=== PATIENT | male | born 1985 | race Two or more races ===

== ENCOUNTER 2019-02-02 13:17 | Inpatient (IN) | payer SELFPAY ==
[2019-02-02] MEDS ORDERED: NORMAL SALINE 1000 ML 1,000 ML IV ONE ×3 (13:36→16:43)
--- NOTE | 2019-02-02 13:46 | ER Document Report ---
ED Medical Screen (RME) - Related Data Frequency of alcohol use: Heavy Drug Abuse: None <MARY ANN ARMANDO - Last Filed: 02/02/19 13:41> <TOMMIENICOLETTE Paris - Last Filed: 02/02/19 17:10> - General Stated Complaint: ALTERED MENTAL STATUS - HPI Notes: 02/02/19 13:41 Patient is a 38-year-old male brought into the emergency department for evaluation. He was brought in by [place] [employer] and EMS. Evidently he was in town, police were called because he was acting abnormally. Please found him to be confused. They were asking him to identify himself. He was using names that he read off of street signs, advertisements, stating that was his name. The patient states to me that he was out drinking last night. He states he was drinking liquor. He states he drinks "most days." He denies use of any other illicit drugs. He denies any recent trauma. (MARY ANN ARMANDO) Past Medical History - General Information source: Patient, Law Enforcement, Emergency Med Personnel - Social History Frequency of alcohol use: Heavy Drug Abuse: None <MARY ANN ARMANDO - Last Filed: 02/02/19 13:41> Review of Systems - Review of Systems -: Yes ROS unobtainable due to patient's medical condition <MARY ANN ARMANDO - Last Filed: 02/02/19 13:41> Physical Exam <MARY ANN ARMANDO - Last Filed: 02/02/19 13:41> - Vital signs Notes: Afebrile, mildly tachycardic per EMS. (MARY ANN ARMANDO) - Notes Notes: 38-year-old male, mildly diaphoretic, awake and alert, no apparent distress. Head is normal cephalic and atraumatic. Pupils are equal, round, reactive to light. Oral mucosa is moist. Heart is regular rate and rhythm, lungs are clear to oscillation bilaterally. Abdomen is soft, nontender, no active bowel sounds. Skin is warm, diaphoretic. Patient is awake and alert. He is oriented to place and time. He is able to identify the president. He seems to be confabulating, however. He is looking around the room anxiously. He moves all 4 extremities spontaneously. (MARY ANN ARMANDO) Course <MARY ANN ARMANDO - Last Filed: 02/02/19 13:41> - Laboratory Result Diagrams: 02/02/19 15:04 02/02/19 15:04 <NICOLETTE REILLY - Last Filed: 02/02/19 17:10> - Re-evaluation Re-evalutation: 02/02/19 13:45 I have greeted and performed a rapid initial assessment of this patient. A comprehensive ED assessment and evaluation of the patient, analysis of test results and completion of medical decision making process will be conducted by an additional ED providers. (MARY ANN ARMANDO) - Laboratory Laboratory results interpreted by me: 02/02/19 02/02/19 02/02/19 15:04 15:04 15:04 WBC 11.5 H RBC 5.58 H Hgb 17.6 H Hct 53.1 H Seg Neutrophils % 79.6 H Lymphocytes % 12.4 L Absolute Neutrophils 9.1 H Carbon Dioxide 14 L Anion Gap 32 H Glucose 129 H Calcium 11.3 H Total Bilirubin 1.6 H Ammonia 319.5 H Creatine Kinase 375 H Total Protein 9.6 H Albumin 5.9 H Salicylates < 1.0 L Acetaminophen < 10 L Doctor's Discharge <MARY ANN ARMANDO - Last Filed: 02/02/19 13:41> <NICOLETTE REILLY - Last Filed: 02/02/19 17:10> - Discharge Clinical Impression: Hyperammonemia, Encephalopathy, High anion gap metabolic acidosis Altered mental status Qualifiers: Altered mental status type: somnolence Qualified Code(s): R40.0 - Somnolence Condition: Stable Disposition: ADMITTED INPATIENT
--- NOTE | 2019-02-02 14:11 | RADIOLOGY REPORT (SQ) ---
EXAM DESCRIPTION: CT HEAD WITHOUT COMPLETED DATE/TIME: 02/02/2019 1:56 pm REASON FOR STUDY: AMS COMPARISON: None. TECHNIQUE: Axial images acquired through the brain without intravenous contrast. Images reviewed wi th bone, brain and subdural windows. Additional sagittal and coronal reconstructions were generated. Images stored on PACS. All CT scanners at this facility use dose modulation, iterative reconstruction, and/or weight based d osing when appropriate to reduce radiation dose to as low as reasonably achievable (ALARA). [facility]: Dose Right [facility]: CareDose [facility]: Dose Right [facility]: Teradose 4D [facility]: Makstr RADIATION DOSE: CT Rad equipment meets quality standard of care and radiation dose reduction techniq ues were employed. CTDIvol: 53.2 mGy. DLP: 2141 mGy-cm. mGy. LIMITATIONS: Extensive motion artifact throughout. FINDINGS: VENTRICLES: Normal size and contour. CEREBRUM: No masses. No hemorrhage. No midline shift. No evidence for acute infarction. Normal gra y/white matter differentiation. No areas of low density in the white matter. CEREBELLUM: No masses. No hemorrhage. No alteration of density. No evidence for acute infarction. EXTRAAXIAL SPACES: No fluid collections. No masses. ORBITS AND GLOBE: No intra- or extraconal masses. Normal contour of globe without masses. CALVARIUM: No fracture. PARANASAL SINUSES: No fluid or mucosal thickening. SOFT TISSUES: No mass or hematoma. OTHER: No other significant finding. IMPRESSION: Examination is limited by extensive motion artifact. Within this limitation, no acute i ntracranial pathology. EVIDENCE OF ACUTE STROKE: NO. COMMENT: Quality ID # [id number]: Final reports with documentation of one or more dose reduction techniques (e.g., Automated exposure control, adjustment of the mA and/or kV according to patient size, use of iterative reconstruction technique) TECHNICAL DOCUMENTATION: JOB ID: [id number] [employer]- All Rights Reserved Reading location - IP/workstation name: [email or web address]
--- NOTE | 2019-02-02 14:15 | ER Document Report ---
ED General - General Chief Complaint: Altered Mental Status Stated Complaint: ALTERED MENTAL STATUS Time Seen by Provider: 02/02/19 13:54 TRAVEL OUTSIDE OF THE [place] IN LAST 30 DAYS: - Unknown - HPI Notes: Patient is a 38-year-old male that presents to the emergency department for chief complaint of alcohol intoxication. Patient was found wandering around a business in [place] behaving erratically by [facility]. When he would not answer his name he was brought to the emergency room. Patient tells me that he has been drinking "mas cervesas" today. Patient does speak [place] but his primary language is English. He denies any hallucinations suicidal ideations or homicidal ideations. He states he remembers acting erratically and reports it was because he was very drunk. Patient denies any trauma or injury. He is complaining of a pain on the lateral aspect of his right leg that is sharp and just began during our conversation. Patient denies headache, vision changes, numbness and weakness. Past Medical History: Asthma Past Surgical History: Appendectomy Social History: Occasional alcohol, denies tobacco or drug use Family History: Reviewed and noncontributory for presenting illness Allergies: Reviewed, see documented allergy list. REVIEW OF SYSTEMS: CONSTITUTIONAL : No fever No chills No diaphoresis No recent illness EENT: No vision changes No congestion No sore throat CARDIOVASCULAR: No chest pain No palpitations RESPIRATORY: No shortness of breath No cough No difficulty breathing GASTROINTESTINAL: No abdominal pain No nausea No vomiting No diarrhea GENITOURINARY: No dysuria No hematuria No difficulty urinating MUSCULOSKELETAL: No back pain leg pain No arm pain SKIN: No rashes No lesions LYMPHATIC: No swollen, enlarged glands. NEUROLOGICAL: No lightheadedness No headache No weakness No paresthesias PSYCHIATRIC: No anxiety No depression PHYSICAL EXAMINATION: Vital signs reviewed, nursing noted reviewed. GENERAL: Appears intoxicated, well-nourished and in no acute distress. HEAD: Atraumatic, normocephalic. EYES: No nystagmus or ophthalmoplegia eyes appear normal, extraocular movements intact, sclera anicteric, conjunctiva are normal. ENT: nares patent, oropharynx clear without exudates. Moist mucous membranes. NECK: Normal range of motion, supple without lymphadenopathy LUNGS: Breath sounds clear to auscultation bilaterally and equal. No wheezes rales or rhonchi. HEART: Regular rate and rhythm without murmurs ABDOMEN: Soft, nontender, normoactive bowel sounds. No rebound, guarding, or rigidity. No masses appreciated. EXTREMITIES: Tenderness to palpation of lateral right lower extremity with underlying muscle spasm, no bony tenderness, good range of motion, no pitting or edema. NEUROLOGICAL: No focal neurological deficits. Moves all extremities spontaneously Motor and sensory grossly intact on exam. PSYCH: Normal mood, normal affect. SKIN: Warm, Dry, normal turgor, no rashes or lesions noted on exposed skin Past Medical History - General Information source: Patient, Law Enforcement, Emergency Med Personnel - Social History Smoking Status: Current Every Day Smoker Chew tobacco use (# tins/day): No Frequency of alcohol use: Heavy Drug Abuse: None Family History: Reviewed & Not Pertinent Patient has suicidal ideation: No Patient has homicidal ideation: No Renal/ Medical History: Denies: Hx Peritoneal Dialysis Course - Re-evaluation Re-evalutation: 02/02/19 14:18 Vitals reviewed. Nursing notes reviewed. Patient is intoxicated but cooperative. He is in no acute distress. He does have tenderness along the lateral aspect of his right leg which is consistent with acute muscle spasm. After stretching of his right calf the pain was improved. Patient will be given IV hydration. He is currently GCS [address] and time 02/02/19 14:54 Patient has continued to give false identities and multiple names to registration and nursing staff. He is clinically intoxicated and admits to heavy alcohol consumption to day. Patient began to get combative with staff and is currently posing a risk to his own safety as well as staff. Patient placed in restraints in order to establish IV access and for patient safety 02/02/19 16:41 I reevaluated this patient on multiple occasions. He has been intermittently combative. Patient is redirectable but seems to be afraid of the security. He is still requiring two-point restraints to keep him from getting out of the bed. He has not pulled his IV out. Patient is currently mentating better than when he presented. He is now speaking clearly in [place]. He has an ammonia level of 319 and states he believes he has had this issue previously when he was drinking. His alcohol currently is negative. He has a normal aspirin Tylenol level. Patient has a slight elevation of CK with normal renal function and no acute rhabdomyolysis. He has not urinated yet and will be ordered 1/3 L of fluid to be started on maintenance at 200 and hour. Patient was ordered lactulose for his hyperammonemia. He will be admitted to the hospital for his acute encephalopathy and elevated ammonia levels. Case discussed with Dr. Pereyra who accepts admission. Laboratory 02/02/19 02/02/19 02/02/19 15:04 15:04 15:04 WBC 11.5 H RBC 5.58 H Hgb 17.6 H Hct 53.1 H MCV 95 MCH 31.6 MCHC 33.2 RDW 13.8 Plt Count 334 Seg Neutrophils % 79.6 H Lymphocytes % 12.4 L Monocytes % 7.3 Eosinophils % 0.3 Basophils % 0.4 Absolute Neutrophils 9.1 H Absolute Lymphocytes 1.4 Absolute Monocytes 0.8 Absolute Eosinophils 0.0 Absolute Basophils 0.0 Sodium 144.3 Potassium 4.8 Chloride 98 Carbon Dioxide 14 L Anion Gap 32 H BUN 10 Creatinine 1.22 Est GFR ( Amer) > 60 Est GFR (Non-Af Amer) > 60 Glucose 129 H Calcium 11.3 H Magnesium 2.0 Total Bilirubin 1.6 H Direct Bilirubin 0.4 Neonat Total Bilirubin Not Reportable Neonat Direct Bilirubin Not Reportable Neonat Indirect Bili Not Reportable AST 41 ALT 24 Alkaline Phosphatase 101 Ammonia 319.5 H Creatine Kinase 375 H Total Protein 9.6 H Albumin 5.9 H Salicylates < 1.0 L Acetaminophen < 10 L Serum Alcohol < [address] 02/02/19 00:00 IMPRESSION: Examination is limited by extensive motion artifact. Within this limitation, no acute intracranial pathology. EVIDENCE OF ACUTE STROKE: NO. - Laboratory Result Diagrams: 02/02/19 15:04 02/02/19 15:04 Laboratory results interpreted by me: 02/02/19 02/02/19 02/02/19 15:04 15:04 15:04 WBC 11.5 H RBC 5.58 H Hgb 17.6 H Hct 53.1 H Seg Neutrophils % 79.6 H Lymphocytes % 12.4 L Absolute Neutrophils 9.1 H Carbon Dioxide 14 L Anion Gap 32 H Glucose 129 H Calcium 11.3 H Total Bilirubin 1.6 H Ammonia 319.5 H Creatine Kinase 375 H Total Protein 9.6 H Albumin 5.9 H Salicylates < 1.0 L Acetaminophen < 10 L - EKG Interpretation by Me Additional EKG results interpreted by me: 02/02/19 14:20 Interpreted by myself [id number]: Sinus tachycardia, rate 106, normal axis, no STEMI, nonspecific T wave changes Critical Care Note - Critical Care Note Total time excluding time spent on procedures (mins): 40 Comments: Critical care time 40 exclusive from separate billable procedures for a patient requiring complex medical decision making, and high potential for clinical deterioration. Time spent obtaining history from patient or surrogate, discussions with consultants, development of treatment plan with patient or surrogate, evaluation of patient's response to treatment, examination of patient, ordering and performing treatments and interventions, ordering and review of laboratory studies, re-evaluation of patient's condition, ordering and review of radiographic studies and review of old charts Discharge - Discharge Clinical Impression: Hyperammonemia, Encephalopathy Altered mental status Qualifiers: Altered mental status type: somnolence Qualified Code(s): R40.0 - Somnolence Condition: Stable Disposition: ADMITTED INPATIENT Admitting Provider: Hafsa (Hospitalist) Unit Admitted: ICU
--- NOTE | 2019-02-02 15:33 | EKG REPORT ---
SEVERITY:- ABNORMAL ECG - SINUS TACHYCARDIA INFERIOR INFARCT, AGE INDETERMINATE ANTEROLATERAL INFARCT, AGE INDETERMINATE : Confirmed by: Pamela Moss MD 02-Feb-2019 15:31:59
[2019-02-02 15:39] LABS: ABSOLUTE LYMPHOCYTES (AUTO) 1.4 10^3/uL (0.5-4.7); ABSOLUTE MONOCYTES (AUTO) 0.8 10^3/uL (0.1-1.4); ABSOLUTE NEUT (AUTO) 9.1 10^3/uL (1.7-8.2); BASOPHILS % (AUTO) 0.4 % (0-2); EOSINOPHILS % (AUTO) 0.3 % (0-6); HEMATOCRIT 53.1 % (37.9-51.0); HEMOGLOBIN 17.6 g/dL (13.5-17.0); LYMPHOCYTES % (AUTO) 12.4 % (13-45); MEAN CORPUSCULAR HEMOGLOBIN 31.6 pg (27.0-33.4); MEAN CORPUSCULAR HGB CONC 33.2 g/dL (32.0-36.0); MEAN CORPUSCULAR VOLUME 95 fl (80-97); MONOCYTES % (AUTO) 7.3 % (3-13); PLATELET COUNT 334 10^3/uL (150-450); RED BLOOD COUNT 5.58 10^6/uL (4.35-5.55); RED CELL DISTRIBUTION WIDTH 13.8 % (11.5-14.0); SEGMENTED NEUTROPHILS % (AUTO) 79.6 % (42-78); TOTAL CELLS COUNTED % (AUTO) 100 %; WHITE BLOOD COUNT 11.5 10^3/uL (4.0-10.5)
[2019-02-02 15:55] LABS: ALANINE AMINOTRANSFERASE 24 U/L (21-72); ALBUMIN 5.9 g/dL (3.5-5.0); ALKALINE PHOSPHATASE 101 U/L (38-126); ASPARTATE AMINO TRANSFERASE 41 U/L (17-59); BILIRUBIN,DIRECT 0.4 mg/dL (0.0-0.4); BILIRUBIN,TOTAL 1.6 mg/dL (0.2-1.3); BLOOD UREA NITROGEN 10 mg/dL (7-20); CALCIUM 11.3 mg/dL (8.4-10.2); CREATINE KINASE 375 U/L (55-170); GLUCOSE 129 mg/dL (75-110); POTASSIUM 4.8 mmol/L (3.6-5.0); TOTAL PROTEIN 9.6 g/dL (6.3-8.2)
[2019-02-02 16:00] LABS: CARBON DIOXIDE 14 mmol/L (22-30); CHLORIDE 98 mmol/L (98-107); SODIUM 144.3 mmol/L (137-145)
[2019-02-02 16:02] LABS: ACETAMINOPHEN < 10 ug/mL (10-30); ALCOHOL < 10 mg/dL (NONE DETECTED); ANION GAP 32 (5-19); SALICYLATE < 1.0 mg/dL (2.0-20.0)
[2019-02-02] MEDS ORDERED: LACTULOSE SYRUP 20 GM/30 ML UDCUP PO ONE (16:26)
[2019-02-02] MEDS ORDERED: NORMAL SALINE 1000 ML 1,000 ML IV PRN (17:20)
[2019-02-02] MEDS ORDERED: ONDANSETRON HCL INJ/PF 4 MG/2 ML SDV IV PRN (17:20)
[2019-02-02] MEDS ORDERED: DEXTROSE 50%-WATER 25 GM/50 ML DISP.SYRIN IV PRN ×2 (17:20)
[2019-02-02] MEDS ORDERED: DEXTROSE 40% GEL 15 GM TUBE PO PRN ×2 (17:20)
[2019-02-02] MEDS ORDERED: ACETAMINOPHEN 650 MG SUPP.RECT PR PRN (17:20)
[2019-02-02] MEDS ORDERED: GLUCAGON,HUMAN RECOMB 1 MG INJ SUBCUT PRN (17:20)
[2019-02-02] MEDS ORDERED: FOMEPIZOLE INJ 1.5 GM/1.5 ML VIAL IV SCH (18:00)
--- NOTE | 2019-02-02 18:03 | PDOC H&P ---
History of Present Illness Admission Date/PCP: 02/02/19 16:54 Patient complains of: altered mental status History of Present Illness: NORMA RAMIREZ is a 33 year old male unknown pat medical history brought in by [facility] er after found him wandering in the the streets. Patient unable to give any history initially to the emergency room physician. Work-up in the ER shows alcohol level 0. Bicarb level is 14 and the chemistry and he has an anion gap of 32. There is a suspicion that he may have drink antifreeze. Patient is on restraints in the emergency room. After communication for a while he is able to give me the data but his name and his mom's phone number. I got in touch with the patient's mom she was able to give me his description and tattoos on his wrist to confirm his presence here. patient is going to be admitted to ICU for further management. Past Surgical History Past Surgical History: Reports: None Social History Information Source: Patient Lives with: Alone Smoking Status: Current Every Day Smoker Frequency of Alcohol Use: Heavy Hx Recreational Drug Use: No Drugs: None - Advance Directive Resuscitation Status: Full Code Family History Family History: Reviewed & Not Pertinent Parental Family History Reviewed: Yes - Family history of hypertension Children Family History Reviewed: Yes Sibling(s) Family History Reviewed.: Yes Review of Systems ROS unobtainable: Due to mental status Physical Exam Vital Signs: Intake & Output 02/01/19 02/02/19 02/03/19 06:59 06:59 06:59 Intake Total 1999 Balance 1999 General appearance: PRESENT: no acute distress, well-developed, well-nourished, other - On soft restraints. Head exam: PRESENT: atraumatic Eye exam: PRESENT: PERRLA Neck exam: ABSENT: carotid bruit, JVD, lymphadenopathy, thyromegaly Respiratory exam: PRESENT: decreased breath sounds Cardiovascular exam: PRESENT: tachycardia GI/Abdominal exam: PRESENT: normal bowel sounds, soft. ABSENT: distended, guarding, mass, organolmegaly, rebound, tenderness Extremities exam: PRESENT: full ROM. ABSENT: calf tenderness, clubbing, pedal edema Neurological exam: PRESENT: alert, awake, oriented to person, oriented to place, oriented to time, oriented to situation, CN II-XII grossly intact. ABSENT: motor sensory deficit Psychiatric exam: PRESENT: appropriate affect, normal mood. ABSENT: homicidal ideation, suicidal ideation Results Laboratory Results: 02/02/19 15:04 02/02/19 15:04 02/02/19 02/02/19 02/02/19 15:04 15:04 15:04 WBC 11.5 H RBC 5.58 H Hgb 17.6 H Hct 53.1 H MCV 95 MCH 31.6 MCHC 33.2 RDW 13.8 Plt Count 334 Seg Neutrophils % 79.6 H Lymphocytes % 12.4 L Monocytes % 7.3 Eosinophils % 0.3 Basophils % 0.4 Absolute Neutrophils 9.1 H Absolute Lymphocytes 1.4 Absolute Monocytes 0.8 Absolute Eosinophils 0.0 Absolute Basophils 0.0 Sodium 144.3 Potassium 4.8 Chloride 98 Carbon Dioxide 14 L Anion Gap 32 H BUN 10 Creatinine 1.22 Est GFR ( Amer) > 60 Est GFR (Non-Af Amer) > 60 Glucose 129 H Calcium 11.3 H Magnesium 2.0 Total Bilirubin 1.6 H AST 41 ALT 24 Alkaline Phosphatase 101 Ammonia 319.5 H Total Protein 9.6 H Albumin 5.9 H 02/02/19 15:04 Creatine Kinase 375 H Impressions: Head CT 02/02/19 00:00 IMPRESSION: Examination is limited by extensive motion artifact. Within this limitation, no acute intracranial pathology. EVIDENCE OF ACUTE STROKE: NO. Assessment and Plan - Diagnosis (1) Altered mental status Qualifiers: Altered mental status type: somnolence Qualified Code(s): R40.0 - Somnolence Is this a current diagnosis for this admission?: Yes Plan: Patient is admitted to the ICU for altered mental status/acute encephalopathy. Most likely secondary to alcohol abuse and is a possibility of antifreeze use also. Patient is going to be on soft restraints is currently n.p.o. On IV fluids normal saline 125 cc/h to start him on IV bicarb also. To repeat the ABG in the ICU. To continue soft restraints. GI prophylaxis DVT prophylaxis initiated. Started on IV Ativan 2 mg every 2 hours PRN for agitation. Psych consult was requested. Repeat labs in the morning. (2) High anion gap metabolic acidosis Is this a current diagnosis for this admission?: Yes Plan: 02/02/2019-patient is admitted with high anion gap metabolic acidosis it is highly likely that he drinks a mild insulin glycol or antifreeze. To start him on fomepizole to dose the patient as per pharmacy. IV bicarb was initiated. To repeat the labs tonight. To check for the urine drug screen. (3) Hyperammonemia Is this a current diagnosis for this admission?: Yes Plan: 02/02/2019-patient came in with ammonia level of more than 300. To start him on lactulose 30 g p.o. every 6 for the next 2 days. To check the ammonia levels tomorrow morning. Altered mental status may be secondary to hepatic encephalopathy. Check for hepatitis profile. (4) Tobacco abuse Is this a current diagnosis for this admission?: No Plan: 02/02/2019-patient has history of chronic smoking to start him on nicotine patch 21 mg daily. Once his altered mental status is improved smoking counseling will be provided. (5) DENISHA (acute kidney injury) Is this a current diagnosis for this admission?: Yes Plan: 02/02/2019-patient's creatinine is 1.22 might have DENISHA possibly secondary to poor oral intake. Start on IV fluids normal saline at 125 cc/h and to recheck the labs tomorrow. Check the urine output. - Time Time Spent with patient: 35 or more minutes Medications reviewed and adjusted accordingly: Yes Anticipated discharge: Home
[2019-02-02 18:30] LABS: VENOUS BLOOD BASE EXCESS 1.9 mmol/L; VENOUS BLOOD HCO3 25.9 mmol/L (20-32); VENOUS BLOOD PCO2 38.6 mmHg (35-63); VENOUS BLOOD PH 7.44 (7.30-7.42)
[2019-02-02 18:45] LABS: APPEARANCE,URINE SLIGHTLY-CLOUDY; BILIRUBIN,URINE NEGATIVE (NEGATIVE); COLOR,URINE YELLOW; GLUCOSE, URINE NEGATIVE (NEGATIVE); KETONES,URINE NEGATIVE (NEGATIVE); LEUKOCYTE ESTERASE,URINE NEGATIVE (NEGATIVE); NITRITE,URINE NEGATIVE (NEGATIVE); PROTEIN,URINE 30 mg/dL (NEGATIVE); URINE SPECIFIC GRAVITY 1.016
[2019-02-02 18:57] LABS: URINE AMPHETAMINES SCREEN NEGATIVE; URINE BARBITURATES SCREEN NEGATIVE; URINE BENZODIAZEPINES SCREEN NEGATIVE; URINE COCAINE SCREEN UNCONFIRMED POSITIVE; URINE MARIJUANA (THC) SCREEN UNCONFIRMED POSITIVE; URINE METHADONE SCREEN NEGATIVE; URINE PHENCYCLIDINE SCREEN NEGATIVE
[2019-02-02] MEDS ORDERED: FOMEPIZOLE IV ONE (19:00)
[2019-02-02] MEDS ORDERED: NORMAL SALINE IV ONE (19:00)
[2019-02-02 19:26] LABS: TROPONIN I < 0.012 ng/mL
[2019-02-02] MEDS: LACTULOSE SYRUP 20 GM/30 ML UDCUP PO SCH (19:42)
[2019-02-02] MEDS: ENOXAPARIN SODIUM INJ 40 MG/0.4 ML DISP.SYRIN SUBCUT SCH (19:42)
[2019-02-02] MEDS: FAMOTIDINE INJ/PF 20 MG/2 ML SDV IV SCH (19:42)
[2019-02-02] MEDS: DEXTROSE 5%-WATER 1000 ML 1,000 ML with SODIUM BICARBONATE 100 MEQ IV PRN ×2 (20:25)
[2019-02-02 23:20] LABS: ARTERIAL BLOOD BASE EXCESS 2.1 mmol/L; ARTERIAL BLOOD H2CO3 1.02 mmol/L (1.05-1.35); ARTERIAL BLOOD O2 SATURATION 98.5 % (94-98); ARTERIAL BLOOD PCO2 33.9 mmHg (35-45); ARTERIAL BLOOD PH 7.49 (7.35-7.45); ARTERIAL BLOOD PO2 116.4 mmHg (80-100); ARTERIAL BLOOD TOTAL CO2 26.1 mmol/L (23-27)
[2019-02-02 23:23] LABS: ARTERIAL BLOOD FIO2 ROOM AIR
[2019-02-02 23:24] LABS: CREATINE KINASE MB 3.54 ng/mL (<4.55)
[2019-02-02 23:29] LABS: TROPONIN I < 0.012 ng/mL
[2019-02-02] MEDS: LORAZEPAM INJ 2 MG/1 ML VIAL IV PRN (23:54)
[2019-02-03] MEDS: LACTULOSE SYRUP 20 GM/30 ML UDCUP PO SCH ×2 (02:00→09:59)
[2019-02-03 04:46] LABS: ABSOLUTE EOSINOPHILS # (AUTO) 0.2 10^3/uL (0.0-0.6); ABSOLUTE LYMPHOCYTES (AUTO) 1.8 10^3/uL (0.5-4.7); ABSOLUTE MONOCYTES (AUTO) 0.6 10^3/uL (0.1-1.4); ABSOLUTE NEUT (AUTO) 5.3 10^3/uL (1.7-8.2); BASOPHILS % (AUTO) 0.5 % (0-2); EOSINOPHILS % (AUTO) 2.5 % (0-6); HEMATOCRIT 46.5 % (37.9-51.0); HEMOGLOBIN 16.1 g/dL (13.5-17.0); LYMPHOCYTES % (AUTO) 22.5 % (13-45); MEAN CORPUSCULAR HEMOGLOBIN 32.1 pg (27.0-33.4); MEAN CORPUSCULAR HGB CONC 34.6 g/dL (32.0-36.0); MEAN CORPUSCULAR VOLUME 93 fl (80-97); MONOCYTES % (AUTO) 7.2 % (3-13); PLATELET COUNT 218 10^3/uL (150-450); RED BLOOD COUNT 5.01 10^6/uL (4.35-5.55); RED CELL DISTRIBUTION WIDTH 13.5 % (11.5-14.0); SEGMENTED NEUTROPHILS % (AUTO) 67.3 % (42-78); TOTAL CELLS COUNTED % (AUTO) 100 %; WHITE BLOOD COUNT 7.8 10^3/uL (4.0-10.5)
[2019-02-03 04:46] LABS: ARTERIAL BLOOD BASE EXCESS 2.8 mmol/L; ARTERIAL BLOOD H2CO3 1.05 mmol/L (1.05-1.35); ARTERIAL BLOOD HCO3 25.8 mmol/L (20-24); ARTERIAL BLOOD O2 SATURATION 98.2 % (94-98); ARTERIAL BLOOD PCO2 34.8 mmHg (35-45); ARTERIAL BLOOD PH 7.49 (7.35-7.45); ARTERIAL BLOOD PO2 104.3 mmHg (80-100); ARTERIAL BLOOD TOTAL CO2 26.9 mmol/L (23-27)
[2019-02-03 04:50] LABS: ARTERIAL BLOOD FIO2 ROOM AIR
[2019-02-03 05:00] LABS: ALANINE AMINOTRANSFERASE 25 U/L (21-72); ALBUMIN 3.6 g/dL (3.5-5.0); ALKALINE PHOSPHATASE 67 U/L (38-126); ASPARTATE AMINO TRANSFERASE 40 U/L (17-59); BILIRUBIN,DIRECT 0.1 mg/dL (0.0-0.4); BILIRUBIN,TOTAL 1.3 mg/dL (0.2-1.3); BLOOD UREA NITROGEN 9 mg/dL (7-20); CALCIUM 9.2 mg/dL (8.4-10.2); CHLORIDE 104 mmol/L (98-107); CHOLESTEROL 188.16 mg/dL (0-200); CREATINE KINASE 771 U/L (55-170); GLUCOSE 91 mg/dL (75-110); LIPASE 57.4 U/L (23-300); SODIUM 139.4 mmol/L (137-145); TOTAL PROTEIN 6.2 g/dL (6.3-8.2); TRIGLYCERIDES 59 mg/dL (<150)
[2019-02-03] MEDS: FOMEPIZOLE IV SCH ×2 (05:01→17:53)
[2019-02-03] MEDS: NORMAL SALINE IV SCH ×2 (05:01→17:53)
[2019-02-03] MEDS: FAMOTIDINE INJ/PF 20 MG/2 ML SDV IV SCH ×2 (05:01→17:54)
[2019-02-03 05:10] LABS: CREATINE KINASE MB 3.62 ng/mL (<4.55)
[2019-02-03 05:11] LABS: DIRECT LDL 123 mg/dL (<100); TROPONIN I < 0.012 ng/mL
[2019-02-03 05:19] LABS: ANION GAP 6 (5-19); CARBON DIOXIDE 29 mmol/L (22-30); POTASSIUM 3.5 mmol/L (3.6-5.0); VLDL CHOLESTEROL 11.8 mg/dL (10-31)
[2019-02-03] MEDS ORDERED: SODIUM BICARBONATE 8.4% INJ 50 MEQ/50 ML DISP.SYRIN ONE (06:00)
[2019-02-03] MEDS: DEXTROSE 5%-WATER 1000 ML 1,000 ML with SODIUM BICARBONATE 100 MEQ IV PRN ×2 (06:09)
[2019-02-03] MEDS: ENOXAPARIN SODIUM INJ 40 MG/0.4 ML DISP.SYRIN SUBCUT SCH (09:55)
[2019-02-03] MEDS ORDERED: DOCUSATE SODIUM 100 MG CAPSULE PO SCH (10:00)
[2019-02-03] MEDS ORDERED: POTASSIUM CHLORIDE 10 MEQ CAPSULE.ER PO ONE (10:24)
--- NOTE | 2019-02-03 10:32 | PDOC PROGRESS REPORT ---
Subjective Progress Note for:: 02/03/19 Subjective:: The patient is resting comfortably in bed. He reports being hungry. He is feeling much better this morning. Reason For Visit: ALTERED MENTAL STATUS Physical Exam Vital Signs: Temp Pulse Resp BP Pulse Ox 98.6 F 62 17 119/81 100 02/03/19 08:00 02/03/19 08:00 02/03/19 08:01 02/03/19 08:01 02/03/19 08:01 Intake & Output 02/02/19 02/03/19 02/04/19 06:59 06:59 06:59 Intake Total 3302.3 Output Total 1000 500 Balance 2302.3 -500 Weight 85.7 kg General appearance: PRESENT: no acute distress, cooperative, well-developed Head exam: PRESENT: atraumatic, normocephalic Eye exam: PRESENT: conjunctiva pink. ABSENT: scleral icterus Ear exam: PRESENT: normal external ear exam Mouth exam: PRESENT: moist, tongue midline Neck exam: PRESENT: full ROM. ABSENT: carotid bruit, JVD, lymphadenopathy Respiratory exam: PRESENT: clear to auscultation berta, symmetrical, unlabored. ABSENT: accessory muscle use, rales, rhonchi, tachypnea, wheezes Cardiovascular exam: PRESENT: RRR, +S1, +S2 GI/Abdominal exam: PRESENT: normal bowel sounds, soft. ABSENT: distended, tenderness Rectal exam: PRESENT: deferred Gentrourinary exam: ABSENT: indwelling catheter Extremities exam: ABSENT: joint swelling, pedal edema Musculoskeletal exam: PRESENT: normal inspection, other - Normal and symmetric upper and lower extremity strength. Neurological exam: PRESENT: alert, awake, oriented to person, oriented to place, oriented to time, oriented to situation, CN II-XII grossly intact, motor sensory deficit - No motor or sensory deficit appreciated. Psychiatric exam: PRESENT: appropriate affect, normal mood. ABSENT: agitated, anxious Focused psych exam: ABSENT: delusional, restlessness Results Laboratory Results: 02/03/19 04:20 02/03/19 04:20 02/02/19 02/02/19 02/02/19 15:04 15:04 15:04 WBC 11.5 H RBC 5.58 H Hgb 17.6 H Hct 53.1 H MCV 95 MCH 31.6 MCHC 33.2 RDW 13.8 Plt Count 334 Seg Neutrophils % 79.6 H Lymphocytes % 12.4 L Monocytes % 7.3 Eosinophils % 0.3 Basophils % 0.4 Absolute Neutrophils 9.1 H Absolute Lymphocytes 1.4 Absolute Monocytes 0.8 Absolute Eosinophils 0.0 Absolute Basophils 0.0 Carbonic Acid HCO3/H2CO3 Ratio ABG pH ABG pCO2 ABG pO2 ABG HCO3 ABG O2 Saturation ABG Base Excess VBG pH VBG pCO2 VBG HCO3 VBG Base Excess FiO2 Sodium 144.3 Potassium 4.8 Chloride 98 Carbon Dioxide 14 L Anion Gap 32 H BUN 10 Creatinine 1.22 Est GFR ( Amer) > 60 Est GFR (Non-Af Amer) > 60 Glucose 129 H Serum Osmolality Calcium 11.3 H Magnesium 2.0 Total Bilirubin 1.6 H AST 41 ALT 24 Alkaline Phosphatase 101 Ammonia 319.5 H Total Protein 9.6 H Albumin 5.9 H Triglycerides Cholesterol LDL Cholesterol Direct VLDL Cholesterol HDL Cholesterol Lipase TSH Urine Color Urine Appearance Urine pH Ur Specific [place] Urine Protein Urine Glucose (UA) Urine Ketones Urine Blood Urine Nitrite Ur Leukocyte Esterase Urine WBC (Auto) Urine RBC (Auto) 02/02/19 02/02/19 02/02/19 15:04 17:53 18:04 WBC RBC Hgb Hct MCV MCH MCHC RDW Plt Count Seg Neutrophils % Lymphocytes % Monocytes % Eosinophils % Basophils % Absolute Neutrophils Absolute Lymphocytes Absolute Monocytes Absolute Eosinophils Absolute Basophils Carbonic Acid HCO3/H2CO3 Ratio ABG pH ABG pCO2 ABG pO2 ABG HCO3 ABG O2 Saturation ABG Base Excess VBG pH 7.44 H VBG pCO2 38.6 VBG HCO3 25.9 VBG Base Excess 1.9 FiO2 Sodium Potassium Chloride Carbon Dioxide Anion Gap BUN Creatinine Est GFR ( Amer) Est GFR (Non-Af Amer) Glucose Serum Osmolality 305 H Calcium Magnesium Total Bilirubin AST ALT Alkaline Phosphatase Ammonia Total Protein Albumin Triglycerides Cholesterol LDL Cholesterol Direct VLDL Cholesterol HDL Cholesterol Lipase TSH Urine Color YELLOW Urine Appearance SLIGHTLY-CLOUDY Urine pH 7.0 Ur Specific [place] 1.016 Urine Protein 30 H Urine Glucose (UA) NEGATIVE Urine Ketones NEGATIVE Urine Blood NEGATIVE Urine Nitrite NEGATIVE Ur Leukocyte Esterase NEGATIVE Urine WBC (Auto) 5 Urine RBC (Auto) 1 02/02/19 02/03/19 02/03/19 23:10 04:20 04:20 WBC 7.8 RBC 5.01 Hgb 16.1 Hct 46.5 MCV 93 MCH 32.1 MCHC 34.6 RDW 13.5 Plt Count 218 Seg Neutrophils % 67.3 Lymphocytes % 22.5 Monocytes % 7.2 Eosinophils % 2.5 Basophils % 0.5 Absolute Neutrophils 5.3 Absolute Lymphocytes 1.8 Absolute Monocytes 0.6 Absolute Eosinophils 0.2 Absolute Basophils 0.0 Carbonic Acid 1.02 L HCO3/H2CO3 Ratio 24:1 ABG pH 7.49 H ABG pCO2 33.9 L ABG pO2 116.4 H ABG HCO3 25.0 H ABG O2 Saturation 98.5 H ABG Base Excess 2.1 VBG pH VBG pCO2 VBG HCO3 VBG Base Excess FiO2 ROOM AIR Sodium 139.4 Potassium 3.5 L D Chloride 104 Carbon Dioxide 29 D Anion Gap 6 BUN 9 Creatinine 0.87 Est GFR ( Amer) > 60 Est GFR (Non-Af Amer) > 60 Glucose 91 Serum Osmolality Calcium 9.2 Magnesium 2.1 Total Bilirubin 1.3 AST 40 ALT 25 Alkaline Phosphatase 67 Ammonia Total Protein 6.2 L Albumin 3.6 Triglycerides 59 Cholesterol 188.16 LDL Cholesterol Direct 123 H VLDL Cholesterol 11.8 HDL Cholesterol 52 Lipase 57.4 TSH Urine Color Urine Appearance Urine pH Ur Specific [place] Urine Protein Urine Glucose (UA) Urine Ketones Urine Blood Urine Nitrite Ur Leukocyte Esterase Urine WBC (Auto) Urine RBC (Auto) 02/03/19 02/03/19 02/03/19 04:20 04:39 04:50 WBC RBC Hgb Hct MCV MCH MCHC RDW Plt Count Seg Neutrophils % Lymphocytes % Monocytes % Eosinophils % Basophils % Absolute Neutrophils Absolute Lymphocytes Absolute Monocytes Absolute Eosinophils Absolute Basophils Carbonic Acid 1.05 HCO3/H2CO3 Ratio 24:1 ABG pH 7.49 H ABG pCO2 34.8 L ABG pO2 104.3 H ABG HCO3 25.8 H ABG O2 Saturation 98.2 H ABG Base Excess 2.8 VBG pH VBG pCO2 VBG HCO3 VBG Base Excess FiO2 ROOM AIR Sodium Potassium Chloride Carbon Dioxide Anion Gap BUN Creatinine Est GFR ( Amer) Est GFR (Non-Af Amer) Glucose Serum Osmolality Calcium Magnesium Total Bilirubin AST ALT Alkaline Phosphatase Ammonia 12.9 Total Protein Albumin Triglycerides Cholesterol LDL Cholesterol Direct VLDL Cholesterol HDL Cholesterol Lipase TSH 0.53 Urine Color Urine Appearance Urine pH Ur Specific [place] Urine Protein Urine Glucose (UA) Urine Ketones Urine Blood Urine Nitrite Ur Leukocyte Esterase Urine WBC (Auto) Urine RBC (Auto) 02/02/19 02/02/19 02/02/19 15:04 18:30 18:30 Creatine Kinase 375 H 615 H CK-MB (CK-2) 3.20 Troponin I < 0.012 02/02/19 02/02/19 02/03/19 22:30 22:30 04:20 Creatine Kinase 741 H 771 H CK-MB (CK-2) 3.54 Troponin I < 0.012 02/03/19 04:20 Creatine Kinase CK-MB (CK-2) 3.62 Troponin I < 0.012 Impressions: Head CT 02/02/19 00:00 IMPRESSION: Examination is limited by extensive motion artifact. Within this limitation, no acute intracranial pathology. EVIDENCE OF ACUTE STROKE: NO. Assessment and Plan - Diagnosis (1) Altered mental status Qualifiers: Altered mental status type: somnolence Qualified Code(s): R40.0 - Somnolence Is this a current diagnosis for this admission?: Yes Plan: Patient is admitted to the ICU for altered mental status/acute encephalopathy. Most likely secondary to alcohol abuse and is a possibility of antifreeze use a lso. Patient is going to be on soft restraints is currently n.p.o. On IV fluids normal saline 125 cc/h to start him on IV bicarb also. To repeat the ABG in the ICU. To continue soft restraints. GI prophylaxis DVT prophylaxis initiated. Started on IV Ativan 2 mg every 2 hours PRN for agitation. Psych consult was requested. Repeat labs in the morning. 02/03/2019-after IV fluids, IV bicarb and fomepizole the patient is much better. He is oriented to person place and situation. The high anion gap metabolic acidosis with markedly elevated ammonia levels is the causative issue. (2) High anion gap metabolic acidosis Is this a current diagnosis for this admission?: Yes Plan: 02/02/2019-patient is admitted with high anion gap metabolic acidosis it is highly likely that he drinks a mild insulin glycol or antifreeze. To start him on fomepizole to dose the patient as per pharmacy. IV bicarb was initiated. To repeat the labs tonight. To check for the urine drug screen. 02/03/2019-suspected ethylene glycol or methanol use. Patient denied this. He states that he drinks tasted funny at the bar he was at. Methyl alcohol levels are still pending. He was also positive for cocaine and marijuana. (3) Hyperammonemia Is this a current diagnosis for this admission?: Yes Plan: 02/02/2019-patient came in with ammonia level of more than 300. To start him on lactulose 30 g p.o. every 6 for the next 2 days. To check the ammonia levels tomorrow morning. Altered mental status may be secondary to hepatic encephalopathy. Check for hepatitis profile. 02/03/2019-ammonia level is back to normal this morning. (4) DENISHA (acute kidney injury) Is this a current diagnosis for this admission?: Yes Plan: 02/02/2019-patient's creatinine is 1.22 might have DENISHA possibly secondary to poor oral intake. Start on IV fluids normal saline at 125 cc/h and to recheck the labs tomorrow. Check the urine output. 02/03/2019-with IV fluids the acute kidney injury has resolved. (5) Tobacco abuse Is this a current diagnosis for this admission?: Yes Plan: 02/02/2019-patient has history of chronic smoking to start him on nicotine patch 21 mg daily. Once his altered mental status is improved smoking counseling will be provided. 02/03/2019-the patient is requesting a nicotine patch. I have ordered the 14 mg patch as he only smokes 10-12 cigarettes a day. (6) Hypokalemia Is this a current diagnosis for this admission?: Yes Plan: 02/03/2019-the patient's serum potassium is slightly low at 3.5. I have ordered a single dose of potassium chloride. Once he starts his oral diet his potassium level should normalize. - Time Time Spent with patient: 15-24 minutes Smoking Cessation Education: 3 to 10 minutes Medications reviewed and adjusted accordingly: Yes Anticipated discharge: Home - Plan Summary Plan Summary: The patient is stable. He will be transferred to a medical floor. We will need to complete his for fomepizole therapy prior to discharge.
[2019-02-03] MEDS ORDERED: NICOTINE 14 MG/24 HR PATCH.TD24 TD ONE (11:30)
--- NOTE | 2019-02-03 16:05 | PSYCHOLOGICAL NOTE ---
Psych Note - Psych Note Date seen by psych provider: 02/03/19 Time seen by psych provider: 14:00 Psych Note: Reason for Consult: Substance Abuse NORMA RAMIREZ is a 33 year old male unknown pat medical history brought in by [facility] after found him wandering in the the streets. Patient reports he has no understanding that he was acting delusional and did not know his name today he was brought to the hospital. He reports that he is from [place] and here for work on cell [employer]. He can continues to disclose that he has been trying to maintain sobriety for approximately the last 4 years and states that he can go anywhere from 10 to 14 months sober before drinking again. He reports that he has difficulty with binge drinking. Patient confirms he has experienced an altered mental status similar to what brought him to [facility] approximately 2 to 3 years ago. He reports that he was told it was "something with my liver... It seems to be my normal results after binge drinking for 3 to 4 months." Patient identifies difficulty with his mood and being anxious and irritable. He denies any history of self-injurious behaviors or attempted suicides. He denies having difficulty with sleep or getting into altercations. Patient denies having an outpatient mental health provider locally or back in [place] stating that he just goes to . He reports he is never been to detox or received any substance abuse treatment. 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 Patient is alert and orientated to person, place, time and circumstance. Mood is euthymic with congruent affect as evidenced by his smiling and engaging with clinician. Patient denies suicidal and homicidal ideation. Delusions are absent behaviors congruent with an intact reality based presentation i.e. organized and linear thought process. Eye contact was maintained. Conversational speech is within normal rate, tone and prosody. Intellectual abilities appear to be within the average range. Attention and concentration are currently good. Insight, judgment, impulse control is fair. No medication recommendations at this time Substance abuse; alcohol Unspecified anxiety disorder Impression\\plan: Patient is cleared from acute psychiatric services. Patient reports he has had a similar episode in the past approximately 2 to 3 years ago. He reports that he was told "it something to do with my liver enzymes." He continued to state that "it is normally results from binge drinking after 3 or 4 months. He confirms he has been trying to obtain sobriety for the last 4 years with anywhere from 10 to 14 months of successful sobriety at a time. Patient is not from [facility]. Patient lives in [facility] and is here for work on [employer]. He reports that he is possibly moving to a new location next week. He discloses that he does not have outpatient mental health assistance but does attend AA. Patient was provided local resources in case he stays in the area and would like further assistance which includes mobile crisis contact information. Dr. More was consulted and the care management of this patient; attending physicians in agreement with recommendations and disposition.
[2019-02-03] MEDS: LORAZEPAM INJ 2 MG/1 ML VIAL IV PRN ×2 (20:13→23:36)
[2019-02-04] MEDS: NORMAL SALINE IV SCH (06:28)
[2019-02-04] MEDS: FOMEPIZOLE IV SCH (06:28)
[2019-02-04] MEDS: FAMOTIDINE INJ/PF 20 MG/2 ML SDV IV SCH (06:30)
[2019-02-04 07:42] LABS: ABSOLUTE EOSINOPHILS # (AUTO) 0.2 10^3/uL (0.0-0.6); ABSOLUTE LYMPHOCYTES (AUTO) 2.2 10^3/uL (0.5-4.7); ABSOLUTE MONOCYTES (AUTO) 0.5 10^3/uL (0.1-1.4); ABSOLUTE NEUT (AUTO) 2.8 10^3/uL (1.7-8.2); BASOPHILS % (AUTO) 0.8 % (0-2); EOSINOPHILS % (AUTO) 4.2 % (0-6); HEMATOCRIT 50.2 % (37.9-51.0); HEMOGLOBIN 17.5 g/dL (13.5-17.0); MEAN CORPUSCULAR HEMOGLOBIN 32.2 pg (27.0-33.4); MEAN CORPUSCULAR HGB CONC 34.7 g/dL (32.0-36.0); MEAN CORPUSCULAR VOLUME 93 fl (80-97); MONOCYTES % (AUTO) 8.6 % (3-13); PLATELET COUNT 251 10^3/uL (150-450); RED BLOOD COUNT 5.41 10^6/uL (4.35-5.55); RED CELL DISTRIBUTION WIDTH 13.4 % (11.5-14.0); SEGMENTED NEUTROPHILS % (AUTO) 48.4 % (42-78); TOTAL CELLS COUNTED % (AUTO) 100 %; WHITE BLOOD COUNT 5.7 10^3/uL (4.0-10.5)
[2019-02-04 07:58] LABS: ANION GAP 10 (5-19); BLOOD UREA NITROGEN 11 mg/dL (7-20); CALCIUM 10.3 mg/dL (8.4-10.2); CARBON DIOXIDE 31 mmol/L (22-30); CHLORIDE 99 mmol/L (98-107); GLUCOSE 99 mg/dL (75-110); POTASSIUM 4.3 mmol/L (3.6-5.0); SODIUM 140.1 mmol/L (137-145)
[2019-02-04] MEDS: ENOXAPARIN SODIUM INJ 40 MG/0.4 ML DISP.SYRIN SUBCUT SCH (09:33)
[2019-02-04] MEDS ORDERED: NICOTINE 14 MG/24 HR PATCH.TD24 TD SCH (10:00)
[2019-02-04 12:05] VITALS: BP 122/76
--- NOTE | 2019-02-04 13:36 | PDOC DISCHARGE SUMMARY ---
General - Admit/Disc Date/PCP Admission Date/Primary Care Provider: 02/02/19 16:54 Discharge Date: 02/04/19 - Discharge Diagnosis (1) Altered mental status Is this a current diagnosis for this admission?: Yes Summary: The patient likely suffered an adverse effect from ingestion of alcohol. His ammonia level was elevated. Likely hepatic encephalopathy versus direct effect of ingested substance. Toxicology screen was positive for marijuana and cocaine (both unconfirmed) and his methyl alcohol level is still pending. (2) High anion gap metabolic acidosis Is this a current diagnosis for this admission?: Yes Summary: Most likely caused from ingestion. He reported that his symptoms started after drinks at a bar. High anion gap metabolic acidosis resolved. I instructed him to abstain from alcohol and stay well-hydrated. (3) Hyperammonemia Is this a current diagnosis for this admission?: Yes Summary: Likely a direct toxic effect of ingestion. Ammonia level back to normal after several doses of lactulose and IV fluids. (4) DENISHA (acute kidney injury) Is this a current diagnosis for this admission?: Yes Summary: Likely secondary to acute toxicity from ingested substances. Resolved with IV fluids. (5) Tobacco abuse Is this a current diagnosis for this admission?: Yes Summary: Continue nicotine patch as an outpatient and tobacco cessation. (6) Hypokalemia Is this a current diagnosis for this admission?: Yes Summary: Potassium supplemented and is now normal. - Additional Information Resuscitation Status: Full Code Discharge Diet: As Tolerated Discharge Activity: Activity As Tolerated Home Medications: Nicotine [Nicoderm 14 mg/24 Hr Transdermal Patch] 1 each TD DAILY [id number] 02/04/19 History of Present Illness Patient complains of: Altered mental status History of Present Illness: NORMA RAMIREZ is a 33 year old male who was found wandering with altered mental status. Evaluation in the emergency department revealed a high anion gap metabolic acidosis. His toxicology screen was positive for marijuana and cocaine. He is creatinine was elevated as well as his ammonia level and transaminases. Suspected agents include methyl alcohol and ethylene glycol. He was referred to the hospitalist service for admission. Hospital Course Hospital Course: The patient was admitted to the ICU and given aggressive IV fluids along with fomepizole. He was given lactulose for his ammonia level greater than 300. Potassium supplement was required. The patient was admitted to the intensive care unit. By the second hospital day he was awake alert and oriented. He had a small amount of abdominal pain. He reported feeling much better. He was transferred to medical floor. He has received 4 of the 5 scheduled doses of fomipazole. Because of his normal laboratory results I will discharge him home. I encouraged him to abstain from alcohol and tobacco as well as stay well-hydr ated. He does have information on substance use support programs in the [place] area. Physical Exam Vital Signs: Temp Pulse Resp BP Pulse Ox 97.7 F 83 16 122/76 99 02/04/19 12:00 02/04/19 12:00 02/04/19 12:00 02/04/19 12:00 02/04/19 12:00 Intake & Output 02/03/19 02/04/19 02/05/19 06:59 06:59 06:59 Intake Total 3302.3 3380.8 100.8 Output Total 1000 1320 Balance 2302.3 2060.8 100.8 Weight 85.7 kg 85.7 kg General appearance: PRESENT: no acute distress, cooperative, well-developed Head exam: PRESENT: atraumatic, normocephalic Respiratory exam: PRESENT: clear to auscultation berta, symmetrical, unlabored. ABSENT: rales, rhonchi, wheezes Cardiovascular exam: PRESENT: RRR, +S1, +S2 GI/Abdominal exam: PRESENT: normal bowel sounds, soft. ABSENT: distended, tenderness Neurological exam: PRESENT: alert, awake, oriented to person, oriented to place, oriented to time, oriented to situation, CN II-XII grossly intact Psychiatric exam: PRESENT: appropriate affect, normal mood. ABSENT: agitated, anxious, suicidal ideation Focused psych exam: ABSENT: delusional, restlessness Results Laboratory Results: 02/04/19 07:08 02/04/19 07:08 02/04/19 02/04/19 07:08 07:08 WBC 5.7 RBC 5.41 Hgb 17.5 H Hct 50.2 MCV 93 MCH 32.2 MCHC 34.7 RDW 13.4 Plt Count 251 Seg Neutrophils % 48.4 Lymphocytes % 38.0 Monocytes % 8.6 Eosinophils % 4.2 Basophils % 0.8 Absolute Neutrophils 2.8 Absolute Lymphocytes 2.2 Absolute Monocytes 0.5 Absolute Eosinophils 0.2 Absolute Basophils 0.0 Sodium 140.1 Potassium 4.3 Chloride 99 Carbon Dioxide 31 H Anion Gap 10 BUN 11 Creatinine 0.93 Est GFR ( Amer) > 60 Est GFR (Non-Af Amer) > 60 Glucose 99 Calcium 10.3 H 02/02/19 02/02/19 02/02/19 15:04 18:30 18:30 Creatine Kinase 375 H 615 H CK-MB (CK-2) 3.20 Troponin I < 0.012 02/02/19 02/02/19 02/03/19 22:30 22:30 04:20 Creatine Kinase 741 H 771 H CK-MB (CK-2) 3.54 Troponin I < 0.012 02/03/19 04:20 Creatine Kinase CK-MB (CK-2) 3.62 Troponin I < 0.012 Impressions: Head CT 02/02/19 00:00 IMPRESSION: Examination is limited by extensive motion artifact. Within this limitation, no acute intracranial pathology. EVIDENCE OF ACUTE STROKE: NO. Qualifiers - * PATIENT BEING DISCHARGED WITH ANY OF THE FOLLOWING DIAGNOSIS: No Plan Time Spent: Greater than 30 Minutes
== END 2019-02-04 15:06 | disposition home or self-care (01) | DRG 917 ==
LOC: ER 13:17 → EDBD 16:54 → EH 16:54 → ICU 21:44 → 5 02-03 19:36
PROVIDERS: ADMIT Internal Medicine; ATTEND Internal Medicine
DX: T51.91XA Toxic effect of unspecified alcohol, accidental (unintentional), initial encounter (principal); G92 Toxic encephalopathy; E87.2 Acidosis; E72.20 Disorder of urea cycle metabolism, unspecified; N17.9 Acute kidney failure, unspecified; E87.6 Hypokalemia; F17.200 Nicotine dependence, unspecified, uncomplicated; F14.90 Cocaine use, unspecified, uncomplicated; F12.90 Cannabis use, unspecified, uncomplicated
CPT/HCPCS: 36415; 70450; 80048; 80053; 80061; 80307; 81001; 82140; 82550; 82553; 82803; 83690; 83735; 83930; 84443; 84484; 84600; 85025; 93005; 93010; 96360; 96361; 99285; J1451; J1650; J2060; J3490; J7030; J7060; S0028